=== PATIENT | male | born 1990 | race Caucasian/White ===

== ENCOUNTER 2016-12-09 19:46 | Emergency (ER) | payer OTHER ==
[~2016-12-09] VITALS: Ht 175.3 cm; Wt 70.0 kg
[2016-12-09 19:52] VITALS: TEMP 36.7; Ht 175.3 cm; Wt 70.0 kg
[2016-12-09] MEDS ORDERED: IBUPROFEN 600 MG TAB PO STA (20:16)
[2016-12-09] MEDS ORDERED: XYLOCAINE 1%/SOD BICARB 20 ML VIAL INFIL ONE (20:30)
--- NOTE | 2016-12-09 20:39 | DIAGNOSTIC IMAGING REPORT ---
RIGHT KNEE 3 VIEWS CLINICAL HISTORY: Right knee pain status post trauma COMPARISON: None. DISCUSSION: No fractures or dislocations are visualized. There is no radiographic evidence of a significant joint effusion. IMPRESSION: No fractures identified. Electronically signed by: Hector Davila M.D. 12/09/2016 8:38 PM Dictated Date/Time: 12/09/2016 8:37 PM
--- NOTE | 2016-12-09 20:42 | DIAGNOSTIC IMAGING REPORT ---
LEFT HAND MIN 3 VIEWS ROUTINE CLINICAL HISTORY: Left hand pain status post trauma COMPARISON: None. DISCUSSION: No fractures or dislocations are visualized. No radiopaque foreign bodies are visualized. IMPRESSION: No fractures, dislocations, or radiopaque foreign bodies identified. Electronically signed by: Hector Davila M.D. 12/09/2016 8:41 PM Dictated Date/Time: 12/09/2016 8:38 PM
--- NOTE | 2016-12-09 21:24 | EMERGENCY ROOM VISIT NOTE ---
ED Visit Note First contact with patient: 20:02 CHIEF COMPLAINT: Left third and fourth finger lacerations at work today HISTORY OF PRESENT ILLNESS: Patient is a left-hand dominant 26-year-old white male who presents emergency department for evaluation of a laceration to his left third and fourth finger. 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 He was carrying a stack of place, when he slipped on water on the floor. He landed on his flexed right knee, and notes pain and swelling there. He did not notice he was bleeding until it was pointed out to him by a coworker. He is not sure how he cut his finger. He does not know if any of the dishes broke. Bleeding has been controlled with pressure. He notes pain in the tips of his third, fourth and fifth fingers. Denies weakness or numbness of the fingers. He also complains of pain in the anterior right knee, and slight swelling, discomfort with weightbearing. REVIEW OF SYSTEMS: Review of systems as per HPI. All other systems reviewed were negative. At least 6 systems reviewed. PMH: Electronic medical records are reviewed and summarized as above/below. See Problem List. His tetanus is up-to-date. SOCIAL HISTORY: Patient lives at home. Positive tobacco use. PHYSICAL EXAM: Vital Signs: Reviewed Nurse's notes. CONSTITUTIONAL: Patient is a anxious 26-year-old white male who is awake and alert and in no acute distress. A female friend is at the bedside. INTEGUMENTARY: There is a 2 cm long laceration on the palmar aspect of the left fourth finger, over the fat circumflex crease of the DIP joint. The edges gape apart with traction. There is no foreign material in the wound and it looks clean. There is no bleeding. No deep structures such as tendons or nerves are seen in the base of the wound. Flexion and extension of the finger is full and strong one isolated at the DIP, PIP and the MCP joint. The patient also has a 0.5 cm laceration on the finger pad of the left third finger. MUSCULOSKELETAL: Examination of the right knee notes mild diffuse soft tissue swelling, no joint effusion is palpable. He is tender anteriorly over the patellar and the patellar ligament. Full range of motion. Patient is able to straight leg raise without difficulty. No ligamentous instability is noted. Right lower extremity is neurovascularly intact. EMERGENCY DEPARTMENT COURSE: The patient is medicated with ibuprofen for his right knee discomfort. Right knee and left hand x-rays were obtained and were negative. Using sterile technique, the left third and fourth fingers were prepped with Betadine, draped with sterile towels, irrigated with normal saline solution and anesthetized with 1% plain buffered lidocaine. A total of 7, 5-0 nylon sutures were used. Bacitracin and a light dressing were applied. The patient does not have any evidence for retained foreign body. I do not suspect fracture, nerve, vascular or tendinous injury. RIGHT KNEE 3 VIEWS CLINICAL HISTORY: Right knee pain status post trauma COMPARISON: None. DISCUSSION: No fractures or dislocations are visualized. There is no radiographic evidence of a significant joint effusion. IMPRESSION: No fractures identified. LEFT HAND MIN 3 VIEWS ROUTINE CLINICAL HISTORY: Left hand pain status post trauma COMPARISON: None. DISCUSSION: No fractures or dislocations are visualized. No radiopaque foreign bodies are visualized. IMPRESSION: No fractures, dislocations, or radiopaque foreign bodies identified. Problem List Medical Problems: (1) Abnormal ECG Status: Resolved (2) Chest pain Status: Resolved (3) Chest pain Status: Resolved (4) Chest pain Status: Resolved (5) Depressive Disorder Nec Status: Chronic (6) Gastroenteritis Status: Resolved Current/Historical Medications No Active Prescriptions or Reported Meds Allergies Coded Allergies: No Known Allergies (Unverified , 09/24/14) Vital Signs Date Time Temp Pulse Resp B/P (MAP) Pulse Ox O2 Delivery O2 Flow Rate FiO2 12/09/16 21:32 84 18 119/63 100 Room Air 12/09/16 19:52 36.7 76 18 121/80 97 Room Air Medications Administered Medications (Trade) Dose Ordered Sig/Veronica Route Start Time Stop Time Status Last Admin Dose Admin Ibuprofen (Motrin Tab) 600 mg NOW STAT PO 12/09/16 20:16 12/09/16 20:17 DC 12/09/16 20:34 600 MG Departure Information Impression Primary Impression: Laceration of finger Additional Impressions: Knee contusion Fall Work related injury Finger laceration Prescriptions No Active Prescriptions or Reported Meds Referrals No Doctor, Assigned (PCP) Patient Instructions [facility] Additional Instructions Keep wound clean and dry. Do not allow any crusting or dried blood to accumulate on sutures. If this occurs, use a 1:1 solution of hydrogen peroxide/ water on a Q-tip to clean the wound. Use an antibiotic ointment for 3-4 days, then let wound dry. Suture removal in 12-14 days. Return sooner for any signs of infection (increasing redness, swelling, drainage). Ice and elevate for swelling and pain. Ibuprofen 600 mg and Tylenol 1000 mg every 6 hrs for pain. Problem Qualifiers Primary Impression: Laceration of finger Encounter type: initial encounter Finger: ring finger Damage to nail status : without damage Foreign body presence: without foreign body Laterality: left Qualified Codes: S61.215A - Laceration without foreign body of left ring finger without damage to nail, initial encounter Additional Impressions: Knee contusion Encounter type: initial encounter Laterality: right Qualified Codes: S80.01XA - Contusion of right knee, initial encounter Fall Encounter type: initial encounter Qualified Codes: W19.XXXA - Unspecified fall, initial encounter Finger laceration Encounter type: initial encounter Finger: middle finger Damage to nail status: without damage Foreign body presence: without foreign body Laterality: left Qualified Codes: S61.213A - Laceration without foreign body of left middle finger without damage to nail, initial encounter
[2016-12-09 21:32] VITALS: BP 119/63; PULSE 84; O2SAT 100
== END 2016-12-09 21:34 | disposition home or self-care (01) ==
LOC: C.EDB 19:48 → C.EDD 21:34
DX: S61.213A Laceration without foreign body of left middle finger without damage to nail, initial encounter (principal); S61.215A Laceration without foreign body of left ring finger without damage to nail, initial encounter; S80.01XA Contusion of right knee, initial encounter; W01.0XXA Fall on same level from slipping, tripping and stumbling without subsequent striking against object, initial encounter; Y93.G1 Activity, food preparation and clean up; Y92.511 Restaurant or cafe as the place of occurrence of the external cause; Y99.0 Civilian activity done for income or pay; Z72.0 Tobacco use; F32.9 Major depressive disorder, single episode, unspecified

== ENCOUNTER 2016-12-18 14:19 | Emergency (ER) | payer OTHER ==
[~2016-12-18] VITALS: Ht 180.3 cm; Wt 66.4 kg
[2016-12-18 14:21] VITALS: BP 116/71; PULSE 74; TEMP 36.4; O2SAT 98; Ht 180.3 cm; Wt 66.4 kg
--- NOTE | 2016-12-18 14:48 | EMERGENCY ROOM VISIT NOTE ---
History First contact with patient: 14:27 Chief Complaint: SUTURE/STAPLE REMOVAL Stated Complaint: REMOVAL OF STITCHES Nursing Triage Summary: Left ring finger and left middle finger with sutures. Here to have them removed. Relates that he has pain in the middle finger. History of Present Illness The patient is a 26 year old male who presents to the Emergency Room for suture removal from left third and fourth finger lacerations that was repaired in our facility 12 days ago. The patient denies any wound complications, persistent pain or paresthesias/numbness. Review of Systems Noncontributory to this visit Past Medical/Surgical History Medical Problems: (1) Abnormal ECG (2) Chest pain (3) Chest pain (4) Chest pain (5) Depressive Disorder Nec (6) Gastroenteritis Family History Cancer Social History Smoking Status: Current Every Day Smoker Alcohol Use: none Drug Use: none Marital Status: in relationship Housing Status: lives with family Occupation Status: unemployed Current/Historical Medications No Active Prescriptions or Reported Meds Allergies Coded Allergies: No Known Allergies (Unverified , 09/24/14) Physical Exam Vital Signs Date Time Temp Pulse Resp B/P (MAP) Pulse Ox O2 Delivery O2 Flow Rate FiO2 12/18/16 14:21 36.4 74 20 116/71 98 Room Air Physical Exam CONSTITUTIONAL: Healthy and well nourished. Alert and oriented X 3 with positive affect. MUSCULOSKELETAL: Examination of the left hand shows healing lacerations to the volar fourth and third fingers. All sutures were removed without any wound competitions, diastases, fluctuance or drainage. INTEGUMENTARY: No rash or other significant dermatologic conditions noted. NEUROLOGIC: Left third and fourth fingertips are sensory intact. Medical Decision & Procedures ED Course Review prior medical records shows that the patient was actually here 9 days ago. However, his wounds do appear to be healing quite well. Sutures were removed without any competitions. The patient was instructed to be very careful that he does not reopen the wounds by applying too much stress. He turned to the emergency department for any further wound concerns, otherwise may follow up with his Worker's Compensation physician if he notices any limitations with his work. Medical Decision Impression Primary Impression: Encounter for removal of sutures Departure Information Prescriptions No Active Prescriptions or Reported Meds Referrals No Doctor, Assigned (PCP) Patient Instructions [facility] [employer]
== END 2016-12-18 15:03 | disposition home or self-care (01) ==
LOC: C.EDB 14:20 → C.EDD 15:03
DX: S61.219D Laceration without foreign body of unspecified finger without damage to nail, subsequent encounter (principal); X58.XXXD Exposure to other specified factors, subsequent encounter; F17.200 Nicotine dependence, unspecified, uncomplicated

== ENCOUNTER 2016-12-23 12:12 | Emergency (ER) | payer OTHER ==
[~2016-12-23] VITALS: Ht 172.7 cm; Wt 67.6 kg
[2016-12-23 12:19] VITALS: TEMP 36.3; Ht 172.7 cm; Wt 67.6 kg
[2016-12-23] MEDS ORDERED: CLIN300C10 PO (12:57)
[2016-12-23] MEDS ORDERED: TRAM-10 PO (12:57)
[2016-12-23 13:52] VITALS: BP 126/86; PULSE 50; O2SAT 99
--- NOTE | 2016-12-24 10:00 | EMERGENCY ROOM VISIT NOTE ---
ED Visit Note First contact with patient: 12:39 CHIEF COMPLAINT: Tooth pain. HISTORY OF PRESENT ILLNESS: Mr. Arceo is a 26-year-old white male who ambulates into the ED accompanied by female friend complaining of right and left maxillary dental pain. He reports a progressive dental pain for the last 24 hours over the right and left maxillary. He describes his right maxillary pain as a sharp and throbbing over tooth #4 and his left maxillary pain as an achy sensation over tooth #13. He rates his overall discomfort 10/10. Both right and left mandibular pain is radiating towards the ears. This pain worsens with chewing bilaterally and palpation over the right. He has not identified any alleviating factors related to the pain. He does report he has been using ibuprofen without relief. Associated with his pain he reports its been so severe he was not able to sleep last night. He denies fevers, chills, sweats, facial swelling, skin color changes, headache , hearing changes, ear drainage, difficulty swallowing, nausea, vomiting, decreased appetite. REVIEW OF SYSTEMS: As noted above in History of Present Illness. 8 body systems were reviewed with this patient and found to be negative unless noted above otherwise. PMH: Patient denies.. CURRENT MEDICATION: Patient denies.. ALLERGIES TO MEDICATION: Patient denies. SOCIAL HISTORY: Patient is currently employed; he feels safe in his home environment; he admits to tobacco use and denies alcohol use. PHYSICAL EXAM: Vital Signs: Date Time Temp Pulse Resp B/P (MAP) Pulse Ox O2 Delivery O2 Flow Rate FiO2 12/23/16 13:52 50 16 126/86 99 12/23/16 12:19 36.3 53 18 128/89 97 Room Air General: 26 year-old white male in mild distress due to pain, nontoxic appearing , afebrile and hemodynamically stable. Neurological: Awake, alert and oriented to person, place and time. Answering questions appropriately and following commands. Normal gait. Good hand eye coordination. No focal motor or sensory deficits. Skin: Warm, dry and pink. No soft tissue lesions, rashes, or trauma noted. HEENT: Atraumatic and normocephalic. External ears are nontender. Auditory canals are pink and patent. Tympanic membranes are pearly laurent with normal light reflex; no erythema or bulging. Oral cavity is moist and pink. Airway is patent. Uvula is midline and no abscesses are seen. No drooling. No intraoral trauma is noted. Patient has multiple caries noted. Tooth #4 is decayed to the bony maxilla. There is mild erythema and edema in this area but I do not appreciate any palpable abscesses. There is no associated facial swelling, erythema or cellulitis. Tooth #13 is absent from a previous extraction. I do not appreciate any local erythema or edema. There is no associated facial swelling, erythema or sialitis. The generalized area is tender to palpation but no signs of infection were located in this area. No cervical or submandibular lymphadenopathy. ED COURSE: Patient is assessed as noted above. Patient is educated about his findings and instructed on his treatment plan; he verbalizes understanding and agreement with this plan. CLINIC IMPRESSION: Dental pain. Possible early abscess. DISPOSITION: Patient discharged home in stable condition; prior to departure he was reassessed and subjectively reported he was feeling the same. PLAN: Comfort measures were discussed including a sliding pain scale of ibuprofen, acetaminophen and Ultram. Patient was prescribed clindamycin 300 mg 4 times a day for 10 days. Patient was encouraged to brush and floss his teeth 4-5 times a day and rinse his mouth with mouthwash 2-3 times a day. Patient was encouraged to avoid tobacco use. Patient was encouraged use mechanical soft diet. Patient was given the name of a local dentist for definitive care and treatment. Patient was encouraged return the ED for uncontrolled pain, fevers, facial swelling or any new/concerning symptoms.
== END 2016-12-23 13:53 | disposition home or self-care (01) ==
LOC: C.EDB 12:13 → C.EDD 13:53
DX: K08.89 Other specified disorders of teeth and supporting structures (principal); F17.200 Nicotine dependence, unspecified, uncomplicated